=== PATIENT | male | born 1935 | race Caucasian/White ===

== ENCOUNTER 2019-01-07 05:45 | Day surgery (SDC) | payer MEDICARE, OTHER ==
[2019-01-07 06:18] LABS: ADD MAN DIFF? NO
[2019-01-07 06:38] LABS: BASOPHILS % 0.7 % (0.0-2.0); HEMATOCRIT 44.8 % (42.0-52.0); LYMPHOCYTES # 0.9 10^3/ul (0.8-2.9); LYMPHOCYTES % 18.7 % (15.0-51.0); MEAN CORPUSCULAR HEMOGLOBIN 30.5 pg (29.0-33.0); MEAN CORPUSCULAR HGB CONC 33.5 g/dl (32.0-37.0); MEAN CORPUSCULAR VOLUME 91.1 fl (82.0-101.0); MEAN PLATELET VOLUME 11.5 fl (7.4-10.4); MONOCYTE # 0.3 10^3/ul (0.3-0.9); MONOCYTES % 6.6 % (0.0-11.0); NEUTROPHIL # 3.4 10^3/ul (1.6-7.5); NEUTROPHILS % 73.8 % (39.0-77.0); PLATELET COUNT 166 10^3/UL (140-415); RED BLOOD COUNT 4.92 10^6/ul (4.70-6.10)
[2019-01-07 06:38] LABS: WHITE BLOOD COUNT 4.6 10^3/ul (4.8-10.8)
[2019-01-07 06:41] LABS: ALANINE AMINOTRANSFERASE 36 IU/L (13-69); ALBUMIN 4.3 g/dl (3.3-4.9); ALBUMIN/GLOBULIN RATIO 1.48; ALKALINE PHOSPHATASE 55 IU/L (42-121); ANION GAP 11 (5-13); ASPARTATE AMINO TRANSFERASE 27 IU/L (15-46); BILIRUBIN,INDIRECT 0.5 mg/dl (0-1.1); BILIRUBIN,TOTAL 0.5 mg/dl (0.2-1.3); CALCIUM 9.5 mg/dl (8.4-10.2); CARBON DIOXIDE 26 mmol/L (21-31); CHLORIDE 105 mmol/L (97-110); CHOL/HDL RATIO 3.7 RATIO; CHOLESTEROL 159 mg/dl (100-200); CREATINE KINASE 37 IU/L (23-200); CREATININE 1.12 mg/dl (0.61-1.24); GLUCOSE 129 mg/dl (70-220); HDL CHOLESTEROL 42 mg/dl (31-75); LDL CHOLESTEROL,CALCULATED 96 mg/dl; POTASSIUM 4.1 mmol/L (3.5-5.1); SODIUM 142 mmol/L (135-144); TOTAL PROTEIN 7.2 g/dl (6.1-8.1); TRIGLYCERIDES 104 mg/dl (0-149)
[2019-01-07 06:45] LABS: BLOOD UREA NITROGEN 25 mg/dl (7-20)
[2019-01-07 06:49] LABS: INR 1.25; PROTIME 15.8 Sec (11.9-14.9); PT RATIO 1.2
[2019-01-07 06:50] LABS: PARTIAL THROMBOPLASTIN TIME 30.6 Sec (23.0-35.0)
[2019-01-07 06:52] LABS: CK INDEX 2.6; CK-MB 0.97 ng/ml (0.0-2.4); TROPONIN-I < 0.012 ng/ml (0.000-0.120)
[2019-01-07] MEDS ORDERED: HEPARIN 1000 UNITS/ML 10 ML INJ (07:38)
[2019-01-07] MEDS ORDERED: FENTAnyl 50 MCG/ML VIAL (07:38)
[2019-01-07] MEDS ORDERED: MIDAZOLAM 1 MG/ML 2 ML INJ (07:38)
[2019-01-07] MEDS ORDERED: IODIXANOL LOCM 100 ML BTL (07:38)
[2019-01-07] MEDS ORDERED: LIDOCAINE 1% (MDV) 20 ML INJ (07:38)
[2019-01-07] MEDS ORDERED: ASPIRIN 325 MG TAB (07:39)
[2019-01-07] MEDS ORDERED: SOD CHLORIDE 0.9% 500 ML (07:39)
[2019-01-07] MEDS ORDERED: VERAPAMIL 5 MG INJ ×2 (07:39→07:49)
[2019-01-07] MEDS ORDERED: NITROGLYCERIN (IC) 100 MCG/ML INJ (07:39)
[2019-01-07] MEDS: SOD CHLORIDE 0.9% 1,000 ML IV (09:12)
== END 2019-01-07 12:45 | disposition home or self-care (01) ==
LOC: SDS 05:45
DX: R07.9 Chest pain, unspecified (principal); R94.39 Abnormal result of other cardiovascular function study; E11.9 Type 2 diabetes mellitus without complications; E78.5 Hyperlipidemia, unspecified; I10 Essential (primary) hypertension
CPT/HCPCS: 80053; 80061; 82550; 82553; 82962; 84484; 85025; 85610; 85730; 93458